=== PATIENT | male | born 1990 | race African-American/Black ===

== ENCOUNTER 2019-04-30 03:10 | Observation (INO) | payer BC, SELFPAY ==
[2019-04-30] MEDS ORDERED: Adacel (T-DAP) 0.5 ML SYRINGE ONE (03:21)
[2019-04-30] MEDS ORDERED: Morphine 4 MG/ML VIAL ONE (03:28)
[2019-04-30 03:32] LABS: Hemoglobin 15.7 g/dL (14.0-18.0); Mean Corpuscular HGB CONC 33.5 g/dL (32.0-36.0); Mean Corpuscular Hemoglobin 31.6 pg (27.0-31.0); Mean Corpuscular Volume 94.2 fL (78.0-98.0); Mean Platelet Volume 9.9 fL (7.4-10.4); Platelet Count 222 thou/uL (130-400); RBC Distribution Width 11.1 % (11.5-14.5); Red Blood Cell (RBC) Count 4.96 mill/uL (4.70-6.10); White Blood Cell (WBC) Count 6.3 thou/uL (4.8-10.8)
[2019-04-30 03:46] LABS: INR-International Normal Ratio 1.1; PTT 26.2 SEC (22.9-36.1); Prothrombin Time 13.8 SEC (12.0-14.7)
[2019-04-30 03:51] LABS: Lymphocytes 31 % (21-51); MDiff Complete? YES; Monocytes 4 % (0-10); Neutrophil 65 % (42-75); Platelet Morphology Comment Appears Adequate; RBC Morphology Normal
[2019-04-30 04:06] LABS: ALT (SGPT) 16 U/L (8-55); AST (SGOT) 21 U/L (5-34); Albumin 4.1 g/dL (3.5-5.0); Alkaline Phosphatase 66 U/L (40-110); Anion Gap 15 mmol/L (10-20); BUN (Urea Nitrogen) 9 mg/dL (8.9-20.6); Bilirubin, Total 0.5 mg/dL (0.2-1.2); Calc. Creatinine Clearance 0 mL/min (70-130); Calcium 9.5 mg/dL (7.8-10.44); Carbon Dioxide 20 mmol/L (22-29); Chloride 105 mmol/L (98-107); Estimated GFR-MDRD 83; Globulin 3.4 g/dL (2.4-3.5); Glucose 103 mg/dL (70-105); Lipase 20 U/L (8-78); Protein, Total 7.5 g/dL (6.0-8.3); Sodium 136 mmol/L (136-145)
[2019-04-30 04:09] LABS: Bilirubin Negative (Negative); Blood, Urine Negative (Negative); Clarity Clear (Clear); Glucose, Urine (Dipstick) Normal (Negative); Leukocyte Negative Leu/uL (Negative); Nitrite Negative (Negative); Protein, Urine (Dipstick) Negative (Neg-Trace); Urobilinogen Normal mg/dL (Less than 2)
[2019-04-30] MEDS ORDERED: Dextrose 5% in Water 1,000 ML IV PRN (05:55)
[2019-04-30] MEDS ORDERED: traMADol HCl 50 MG TAB PO PRN ×2 (05:55)
[2019-04-30] MEDS ORDERED: Cyclobenzaprine 10 MG TAB PO PRN (05:55)
[2019-04-30] MEDS ORDERED: Dextrose 50% Abboject 50 ML SYRINGE SLOW IVP PRN (05:55)
[2019-04-30] MEDS ORDERED: Promethazine HCl 25 MG/ML VIAL IM PRN ×2 (05:55)
[2019-04-30] MEDS ORDERED: Ibuprofen 600 MG TAB PO PRN (05:55)
[2019-04-30] MEDS ORDERED: Ondansetron ODT 4 MG TAB PO PRN (05:55)
[2019-04-30] MEDS ORDERED: Sodium Chloride 0.9% 1,000 ML IV SCH (05:55)
[2019-04-30] MEDS ORDERED: Ondansetron PF 4 MG/2 ML Vial IVP PRN (05:55)
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
[2019-04-30 06:22] LABS: Lactic Acid 2.2 mmol/L (0.5-2.2)
[2019-04-30 06:31] VITALS: BMI 29.1
[2019-04-30] MEDS: Acetaminophen 325 MG TAB PO SCH ×3 (06:39→12:22)
[2019-04-30 07:17] VITALS: TEMP 97.9
[2019-04-30] MEDS ORDERED: Famotidine/PF 20 mg/2ml Vial SLOW IVP SCH (09:00)
[2019-04-30] MEDS ORDERED: Famotidine 20 MG TAB PO SCH (09:00)
[2019-04-30] MEDS ORDERED: FLU VACC QS2019-20(6MOS UP)/PF 60 MCG/0.5 ML SYRINGE IM ONE (09:30)
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
[2019-04-30 11:53] VITALS: BP 130/74
[2019-04-30] MEDS ORDERED: Iopamidol-370 76% 500 ML 1 ML ONE (12:00)
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
== END 2019-04-30 12:00 | disposition home or self-care (01) ==
LOC: ERS 03:10 → INTOOBSV 04:48 → SURG B 04:48 → EEVIPCON 04:48 → SURG B 05:39
PROVIDERS: ADMIT Surgery; ATTEND Surgery
DX: S31.149A Puncture wound of abdominal wall with foreign body, unspecified quadrant without penetration into peritoneal cavity, initial encounter (principal); W34.00XA Accidental discharge from unspecified firearms or gun, initial encounter; Z18.89 Other specified retained foreign body fragments
CPT/HCPCS: 36415; 71045; 72170; 74174; 80053; 81003; 83605; 83690; 85025; 85610; 85730; 86850; 86900; 86901; 90471; 90715; 93005; 94760; 96361; 96374; 96375; G0378; G0390; J2270; Q9967; S0028